=== PATIENT | male | born 1985 | race African-American/Black ===

== ENCOUNTER 2018-11-25 16:07 | Emergency (ER) | payer OTHER ==
[2018-11-25] MEDS ORDERED: SODIUM CHLORIDE 0.9% 1,000 ML IV ONE (17:00)
--- NOTE | 2018-11-25 17:00 | ED Physician Documentation ---
PD HPI SYNCOPE - Stated complaint Stated Complaint: SYNCOPAL - Chief complaint Chief Complaint: Neuro - History obtained from History obtained from: Patient - History of Present Illness Witnessed: Witnessed Duration: Seconds (30) Preceding symptoms: Dyspnea, Light headed Contributing factors: Exertion Injury occurred: None Similar symptoms before: Has not had sx before - Additional information Additional information: The patient is an otherwise healthy 33-year-old active [employer] male who was undergoing a fitness test when he felt dizzy/lightheaded and short of breath. He had been working out on the stationary bicycle when the incident occurred. He stopped and draped himself over the handlebars the bicycle. A supervisor heavy equipment noticed him and found him unresponsive. He was eased to the floor where he immediately regained consciousness. He is asymptomatic at the time of arrival in the emergency department. He denies any associated chest pain, nausea or vomiting. He denies history of similar symptoms in the past. Review of Systems Constitutional: denies: Fever Ears: denies: Tinnitus/ringing Nose: denies: Congestion Throat: denies: Sore throat Cardiac: denies: Chest pain / pressure, Palpitations Respiratory: reports: Dyspnea (transient, but not currently.). denies: Cough GI: denies: Abdominal Pain, Nausea, Vomiting : denies: Dysuria, Incontinent Skin: denies: Rash Musculoskeletal: denies: Back pain, Extremity swelling Neurologic: reports: Syncope. denies: Focal weakness, Numbness, Headache PD PAST MEDICAL HISTORY - Past Medical History Past Medical History: Yes Cardiovascular: None Respiratory: None Neuro: None Endocrine/Autoimmune: None GI: None : None HEENT: None Psych: None Musculoskeletal: None Derm: None - Past Surgical History Past Surgical History: No - Present Medications Home Medications: Ambulatory Orders Medication Instructions Recorded Confirmed Naproxen [Naprosyn] 500 mg PO BID #30 tablet 11/25/18 - Allergies Allergies/Adverse Reactions: Allergies Allergy/AdvReac Type Severity Reaction Status Date / Time No Known Drug Allergies Allergy Verified 11/25/18 16:14 - Social History Does the pt smoke?: Yes Smoking Status: Current every day smoker Does the pt have substance abuse?: No - Immunizations Immunizations are current?: No - POLST Patient has POLST: No PD ED PE NORMAL - Vitals Vital signs reviewed: Yes (normal) - General General: Alert and oriented X 3, Well developed/nourished - HEENT HEENT: Atraumatic, EOMI, Moist mucous membranes, Pharynx benign - Neck Neck: Supple, no meningeal sign, No adenopathy, No JVD - Cardiac Cardiac: RRR, No murmur - Respiratory Respiratory: No respiratory distress, Clear bilaterally - Abdomen Abdomen: Soft, Non tender, Other (Scaphoid abdomen.) - Back Back: No CVA TTP - Derm Derm: No rash - Extremities Extremities: No tenderness to palpate, No edema, No calf tenderness / cord - Neuro Neuro: Alert and oriented X 3, No motor deficit, No sensory deficit, Normal speech Results - Vitals Vitals: Oxygen O2 Source Room air - EKG (time done) 16:47 Rate: Rate (enter#) (72) Rhythm: NSR [place]: Normal Intervals: Normal [place] QRS: Normal Ischemia: Other (Diffuse ST elevation consistent with pericarditis.) - Labs Labs: Laboratory Tests 11/25/18 11/25/18 11/25/18 17:03 17:03 17:03 WBC 12.8 H RBC 4.46 L Hgb 14.4 Hct 42.7 MCV 95.9 H MCH 32.2 H MCHC 33.6 RDW 12.0 Plt Count 215 MPV 8.0 Neut # (Auto) 10.2 H Lymph # (Auto) 1.2 L [place] # (Auto) 1.1 H Eos # (Auto) 0.2 Baso # (Auto) 0.1 Absolute Nucleated RBC 0.00 Nucleated RBC % 0.0 Sodium 137 Potassium 3.7 Chloride 101 Carbon Dioxide 25 Anion Gap 11.0 BUN 12 Creatinine 1.3 H Estimated GFR (MDRD) 78 L Glucose 98 Calcium 9.4 Total Bilirubin 0.7 AST 21 ALT 16 Alkaline Phosphatase 45 Troponin I < 0.04 Total Protein 8.1 Albumin 4.7 Globulin 3.4 Albumin/Globulin Ratio 1.4 Lipase 31 PD MEDICAL DECISION MAKING - ED course Complexity details: reviewed results, re-evaluated patient, considered differential, d/w patient, d/w family ED course: The patient's presentation is most consistent with acute pericarditis, with evidence of diffuse ST elevations consistent with pericarditis on electrocardiogram. His troponin is normal, and I doubt myocardial ischemia or pulmonary embolus. Treatment in the emergency department included administration of normal saline 1 L IV Naprosyn 500 mg orally. He is being discharged with prescription for Naprosyn. I discussed with him and his family the expected course of illness, symptomatic treatment and outpatient follow-up, as well as potentially worrisome signs or symptoms that should prompt reevaluation in the emergency department. Departure - Departure Disposition: 01 Home, Self Care Clinical Impression: Pericarditis Qualifiers: Pericarditis type: unspecified type Chronicity: acute Qualified Code(s): I30.9 - Acute pericarditis, unspecified Episode of syncope Qualifiers: Syncope type: unspecified Qualified Code(s): R55 - Syncope and collapse Condition: Stable Instructions: ED Chest Pain Pericarditis Follow-Up: IRLANDA MENDEZ MD [Physician No Access] - Prescriptions: Naproxen [Naprosyn] 500 mg PO BID #30 tablet Comments: Take Naprosyn twice daily as prescribed. Limit your physical activity for the next 2 weeks to avoid excessive stress on your heart. Follow-up with your primary physician within 1 week. Call to schedule appointment. Return to the emergency department if increasing chest pain or shortness of breath, recurrent episodes of passing out, or otherwise worsening symptoms. Forms: Activity restrictions Discharge Date/Time: 11/25/18 18:00
[2018-11-25 17:08] LABS: BASOPHILS # (AUTO) 0.1 10^3/uL (0.0-0.1); BASOPHILS % (AUTO) 0.7 %; EOSINOPHILS # (AUTO) 0.2 10^3/uL (0.0-0.7); EOSINOPHILS % (AUTO) 1.2 %; HGB - HEMOGLOBIN 14.4 g/dL (14.0-18.0); LYMPHOCYTES # (AUTO) 1.2 10^3/uL (1.5-3.5); LYMPHOCYTES % (AUTO) 9.7 %; MEAN CORPUSCULAR HEMOGLOBIN 32.2 pg (27.0-31.0); MEAN CORPUSCULAR HGB CONC 33.6 g/dL (32.0-36.0); MEAN CORPUSCULAR VOLUME 95.9 fL (80.0-94.0); MONOCYTES # (AUTO) 1.1 10^3/uL (0.0-1.0); MONOCYTES % (AUTO) 8.5 %; NEUTROPHILS # (AUTO) 10.2 10^3/uL (1.5-6.6); NEUTROPHILS % (AUTO) 79.9 %; PLT - PLATELET COUNT 215 10^3/uL (130-450); RED BLOOD COUNT 4.46 10^6/uL (4.70-6.10); WHITE BLOOD COUNT 12.8 x10^3/uL (4.8-10.8)
[2018-11-25 17:21] LABS: ALBUMIN 4.7 g/dL (3.2-5.5); ALBUMIN/GLOBULIN RATIO 1.4 (1.0-2.2); BILIRUBIN,TOTAL 0.7 mg/dL (0.2-1.0); CALCIUM 9.4 mg/dL (8.5-10.3); CREATININE 1.3 mg/dL (0.6-1.2); TOTAL PROTEIN 8.1 g/dL (6.7-8.2)
[2018-11-25] MEDS ORDERED: NAPROXEN 250 MG TABLET PO STA (17:34)
[2018-11-25 17:49] VITALS: BP 111/70
== END 2018-11-25 18:00 | disposition home or self-care (01) ==
LOC: ED 16:07
DX: I30.9 Acute pericarditis, unspecified (principal); R55 Syncope and collapse; F17.200 Nicotine dependence, unspecified, uncomplicated
CPT/HCPCS: 36415; 80053; 83690; 84484; 85025; 93005; 99283; 99284